=== PATIENT | female | born 1995 | race Caucasian/White ===

== ENCOUNTER 2021-10-10 13:10 | Outpatient (RCR) | payer OTHER | END 2021-10-13 | LOC: M ST 13:10 | PROVIDERS: ATTEND Student in an Organized Health Care Education/Training Program | DX: R06.02 Shortness of breath (principal) ==

== ENCOUNTER → 2023-06-22 | Outpatient (REF) | payer OTHER | LOC: M PLALAB 10:48 | PROVIDERS: ATTEND Advanced Practice Midwife | DX: B37.31 Acute candidiasis of vulva and vagina (principal); Z53.9 Procedure and treatment not carried out, unspecified reason ==

== ENCOUNTER → 2023-07-07 | Outpatient (REF) | payer OTHER | LOC: M PLALAB 15:21 | PROVIDERS: ATTEND Advanced Practice Midwife | DX: Z53.9 Procedure and treatment not carried out, unspecified reason (principal) ==

== ENCOUNTER 2023-08-01 22:23 | Inpatient (IN) | payer OTHER ==
[~2023-08-01] VITALS: Ht 157.5 cm; Wt 79.7 kg
[2023-08-01 22:42] VITALS: BP 146/95
[2023-08-01] MEDS ORDERED: PRENTAB9 PO (22:43)
[2023-08-01] MEDS ORDERED: VALT500T PO (22:43)
[2023-08-01] MEDS ORDERED: HOME MED LIST COMPLETE! XX SCH (22:50)
[2023-08-01] MEDS ORDERED: LACTATED RINGER'S 1000 ML IV STA (22:57)
[2023-08-01] MEDS ORDERED: AMPICILLIN SOD 2 GM in D5W MINI-BAG PLUS 100 ML IV STA (22:57)
[2023-08-01 23:21] VITALS: BP 147/88
[2023-08-02] VITALS (41 sets, daily range): BP systolic 103–192; BP diastolic 57–95
[2023-08-02 00:10] LABS: HEMATOCRIT 35.5 % (36.0-47.0); HEMOGLOBIN 12.1 g/dl (12.0-15.5); MEAN CORPUSCULAR HEMOGLOBIN 30.5 pg (27.0-33.0); MEAN CORPUSCULAR HGB CONC 34.1 g/dl (32.0-36.5); MEAN CORPUSCULAR VOLUME 89.4 fl (80.0-96.0); PLATELET COUNT, AUTOMATED 286 10^3/uL (150-450); RED BLOOD COUNT 3.97 10^6/uL (4.00-5.40); WHITE BLOOD COUNT 16.2 10^3/uL (4.0-10.0)
[2023-08-02] MEDS: LR 1,000 ML IV SCH ×3 (00:27→16:49)
[2023-08-02] MEDS ORDERED: ePHEDrine SULFATE 25 MG/5 ML(5MG/ML) SYRINGE IVP PRN (00:30)
[2023-08-02] MEDS ORDERED: EPIDURAL/PCA KEYS XX PRN (00:30)
[2023-08-02] MEDS ORDERED: diphenhydrAMINE 50MG/ML VIAL IV PRN (00:30)
[2023-08-02] MEDS ORDERED: LR 500 ML IV PRN (00:30)
[2023-08-02] MEDS ORDERED: NALOXONE INJ 0.4MG/1ML VIAL IV PRN (00:30)
[2023-08-02] MEDS ORDERED: ONDANSETRON 4MG 2ML VIAL IV PRN (00:30)
[2023-08-02 00:32] LABS: HEMATOCRIT 35.5 % (36.0-47.0); HEMOGLOBIN 11.8 g/dl (12.0-15.5); MEAN CORPUSCULAR HEMOGLOBIN 29.9 pg (27.0-33.0); MEAN CORPUSCULAR HGB CONC 33.2 g/dl (32.0-36.5); MEAN CORPUSCULAR VOLUME 89.9 fl (80.0-96.0); PLATELET COUNT, AUTOMATED 271 10^3/uL (150-450); RED BLOOD COUNT 3.95 10^6/uL (4.00-5.40); WHITE BLOOD COUNT 16.6 10^3/uL (4.0-10.0)
[2023-08-02] MEDS: FENTANYL/ROPIVACAINE/NACL BAG 100 ML EPIDURAL SCH ×3 (00:52→15:55)
[2023-08-02] MEDS: AMPICILLIN SOD 1 GM in D5W MINI-BAG PLUS 50 ML IV SCH ×2 (05:35→12:16)
[2023-08-02] MEDS ORDERED: ACETAMINOPHEN 500 MG TAB PO ONE ×2 (06:00→15:15)
[2023-08-02 06:15] LABS: LDH LACTATE DEHYDROGENASE 422 U/L (120-246)
[2023-08-02 06:22] LABS: ALT/SGPT 25 U/L (7.0-40); AST/SGOT 58 U/L (<34); BILIRUBIN,TOTAL 0.3 MG/DL (0.3-1.2); CREATININE FOR GFR 0.36 MG/DL (0.55-1.30); GLOMERULAR FILTRATION RATE > 60.0 (>60); URIC ACID 5.4 MG/DL (3.1-7.8)
[2023-08-02] MEDS ORDERED: OXYTOCIN DRIP 30 UNITS in IV 1 EA IV SCH (08:25)
[2023-08-02] MEDS ORDERED: valACYclovir HCL 500 MG TAB PO ONE (10:00)
[2023-08-02] MEDS ORDERED: LIDOCAINE 1% MDV 20ML VIAL As Ordered ONE (16:44)
[2023-08-02] MEDS ORDERED: LIDOCAINE 1% MDV 20ML VIAL SC ONE (16:50)
[2023-08-02 16:58] LABS: CORD GAS ABE A -9.1; CORD GAS ABE V -5.1; CORD GAS HCO3 A 19.9 MMOL/L; CORD GAS HCO3 V 20.2 MMOL/L; CORD GAS O2 SAT A 20.9 %; CORD GAS O2 SAT V 70.2 %; CORD GAS PCO2 V 38.4 mmHg; CORD GAS PH A 7.176 UNITS; CORD GAS PH V 7.338 UNITS; CORD GAS PO2 A 16.1 mmHg; CORD GAS PO2 V 33.3 mmHg; CORD GAS SBC A 15.6 MMOL/L; CORD GAS SBC V 19.7 MMOL/L; CORD GAS TCO2 A 21.6 MMOL/L; CORD GAS TCO2 V 21.3 MMOL/L
[2023-08-02] MEDS ORDERED: METHYLERGONOVINE MALEATE 0.2 MG TAB PO PRN (17:20)
[2023-08-02] MEDS ORDERED: MOM 30ML SUSPENSION UDC PO PRN (17:20)
[2023-08-02] MEDS ORDERED: DOCUSATE SODIUM 100MG CAPSULE PO PRN (17:20)
[2023-08-02] MEDS ORDERED: ANUSOL HC CREAM 30GM TOP PRN (17:20)
[2023-08-02] MEDS ORDERED: ACETAMINOPHEN TAB 650MG DOSE (2X325MG) PO PRN (17:20)
[2023-08-02] MEDS: IBUPROFEN 800 MG TAB PO PRN (17:57)
[2023-08-02] MEDS: ACETAMINOPHEN 500 MG TAB PO PRN (20:28)
[2023-08-02] MEDS: DIBUCAINE 1% OINTMENT 30GM TOP PRN (20:28)
[2023-08-03] MEDS: IBUPROFEN 800 MG TAB PO PRN ×2 (03:13→11:48)
[2023-08-03 06:00] VITALS: BP 100/63
[2023-08-03] MEDS: ACETAMINOPHEN 500 MG TAB PO PRN ×2 (08:38→17:25)
[2023-08-03] MEDS: PRENATAL VITAMINS CHEWABLE TABLET PO SCH (08:38)
[2023-08-03 18:00] VITALS: BP 117/67
[2023-08-03] MEDS: IBUPROFEN 600MG TAB PO PRN (22:27)
[2023-08-04 06:00] VITALS: BP 109/57
[2023-08-04] MEDS: ACETAMINOPHEN 500 MG TAB PO PRN (07:33)
[2023-08-04] MEDS: PRENATAL VITAMINS CHEWABLE TABLET PO SCH (07:33)
[2023-08-04] MEDS ORDERED: OMEPRAZOLE 20MG CAP PO ONE (08:25)
[2023-08-04] MEDS ORDERED: MEASLES,MUMPS,RUBELLA VACCINE INJ (MMR-II) SC.IMMUN ONE (09:00)
[2023-08-04] MEDS: DIBUCAINE 1% OINTMENT 30GM TOP PRN (10:34)
[2023-08-04] MEDS: IBUPROFEN 600MG TAB PO PRN (14:04)
== END 2023-08-04 14:15 | disposition home or self-care (01) | DRG 807 ==
LOC: M LDO 22:23 → M LDI 23:05 → M OBS 08-02 19:30
PROVIDERS: ADMIT Obstetrics & Gynecology; ATTEND Obstetrics & Gynecology
PROC: 10E0XZZ Delivery of Products of Conception, External Approach (ICD-10-PCS; principal; 2023-08-02)
PROC: 0KQM0ZZ Repair Perineum Muscle, Open Approach (ICD-10-PCS; 2023-08-02)
DX: O34.211 Maternal care for low transverse scar from previous cesarean delivery (principal); Z37.0 Single live birth; Z3A.39 39 weeks gestation of pregnancy; Z87.891 Personal history of nicotine dependence; Z88.8 Allergy status to other drugs, medicaments and biological substances; Z91.018 Allergy to other foods; O69.82X0 Labor and delivery complicated by other cord entanglement, without compression, not applicable or unspecified; O70.1 Second degree perineal laceration during delivery